=== PATIENT | female | born 1940 | race Caucasian/White ===

== ENCOUNTER 2020-04-20 04:28 | Day surgery (SDC) | payer OTHER ==
[2020-04-19 15:35] VITALS: BMI 26.2
--- NOTE | 2020-04-20 06:51 | HP ---
History & Physical Update - History History: No Change - Physical Physical: No Change - Assessment Assessment: No Change - Plan Plan: No Change (Consent signed and witnessed, all questions answered)
[2020-04-20] MEDS ORDERED: MIDAZOLAM HCL 2 MG/2 ML SINGLE DOSE VIAL ONE (09:37)
--- NOTE | 2020-04-20 10:36 | OP ---
Operative Note - Note: Operative Date: 04/20/20 Pre-Operative Diagnosis: 80yo with Postmenopausal bleed, thick endometrium Operation: Hysteroscopy, D&C Findings: Thickened Endometrium Post-Operative Diagnosis: Same as Pre-op Surgeon: Pinky De Guzman Anesthesiologist/AGRICULTURE ENGINEER: Jamar Hebert Anesthesia: MAC Specimens Removed: Endometrial curettings Estimated Blood Loss (mls): 5 Instrument used (Debridements only): Symphion Drains & Tubes with Location: Fluid Deficit 1000cc Drains, Volume Out (mls): 100 Fluid Volume Replaced (mls): 500 Operative Report Dictated: Yes
[2020-04-20] MEDS ORDERED: oxyCODONE HCL 5 MG TABLET PO PRN (10:41)
[2020-04-20] MEDS ORDERED: ONDANSETRON 4 MG/2 ML VIAL IVPUSH PRN (10:41)
[2020-04-20] MEDS ORDERED: IBUPROFEN 800 MG/8 ML IJ IVPB PRN (10:41)
[2020-04-20] MEDS ORDERED: IBUPROFEN 600 MG TABLET (FP) PO PRN (10:41)
[2020-04-20] MEDS ORDERED: ELECTROLYTE-148 SOLN 1,000 ML IV SCH (10:45)
[2020-04-20] MEDS ORDERED: LACTATED RINGERS SOLUTION 1,000 ML IV SCH (11:30)
[2020-04-20 12:07] VITALS: TEMP 97.1
[2020-04-20 12:42] VITALS: BP 135/72; PULSE 66
--- NOTE | 2020-04-20 15:02 | OP ---
DATE OF OPERATION: 04/20/2020 PREOPERATIVE DIAGNOSIS: A 80-year-old with postmenopausal bleeding, thick endometrium. OPERATION: Hysteroscopy, dilation and curettage. FINDINGS: Thickened endometrium. POSTOPERATIVE DIAGNOSIS: A 80-year-old with postmenopausal bleeding, thick endometrium. SURGEON: Pinky De Guzman MD ANESTHESIOLOGIST: Jamar Hebert MD ANESTHESIA: MAC. SPECIMENS SENT: Endometrial curettings. DESCRIPTION OF OPERATIVE PROCEDURE: After assuring informed consent, patient was brought to the operating room where she was placed in dorsal lithotomy position. After administering general sedation, the perineum and vagina were prepped and draped in sterile fashion. After timeout the Wei retractor was placed into the anterior and posterior vaginal fornix. The anterior uterine lip was articulated with single-tooth tenaculum. Cervix was gradually dilated to accommodate 6.3-mm Symphion hysteroscope that was introduced without any difficulty or resistance. The uterine cavity was inspected and subsequently the resecting device was introduced and endometrial cavity was resected circumferentially. Excellent hemostasis was noted throughout the procedure. All instruments and sponges were removed from uterus, cervix and vagina. Instrument count and sponge count was correct x2. Estimated blood loss 5 mL. Symphion hysteroscope used during the procedure. Drained 100 mL of urine during the procedure. Patient received 500 mL of IV fluids and fluid deficit was estimated to be 1000 mL. Patient was brought to the recovery room in stable condition. Fabricio [id number]
--- NOTE | 2020-04-21 15:16 | PATH ---
Surgical Pathology Report Patient Name: DANA HILLS Med. Rec. #: [id number] /Age/Gender: 1940 (Age: 80) / F Account: [id number] Location: [facility] SURGICAL Taken: 04/20/2020 Received: 04/20/2020 Reported: 04/21/2020 Physicians: Pinky De Guzman M.D. Specimen(s) Received ENDOMETRIAL CURETTINGS Clinical History Postmenopausal bleeding Final Diagnosis ENDOMETRIAL CURETTINGS, DILATION AND CURETTAGE: FRAGMENTS OF ATROPHIC ENDOMETRIUM AND FIBROMUSCULAR TISSUE. Electronically Signed Sabrina Snowden M.D. Gross Description Received in formalin labeled "endometrial curettings," is a 3.0 x 2.0 x 0.3 cm aggregate of yee soft tissue fragments. The specimen is entirely submitted in 2 cassettes. DL/04/20/2020 saudi/04/20/2020
== END 2020-04-20 13:11 | disposition home or self-care (01) ==
LOC: JASU-SURG 04:28
PROVIDERS: ATTEND Obstetrics & Gynecology
PROC: 0UDB8ZZ Extraction of Endometrium, Via Natural or Artificial Opening Endoscopic (ICD-10-PCS; principal; 2020-04-20 09:00)
DX: N95.0 Postmenopausal bleeding (principal); R93.89 Abnormal findings on diagnostic imaging of other specified body structures; E11.9 Type 2 diabetes mellitus without complications; E78.00 Pure hypercholesterolemia, unspecified
CPT/HCPCS: 82962; 88305-TC; 94760

== ENCOUNTER 2023-03-26 10:05 | Emergency (ER) | payer OTHER ==
[2023-03-26 10:15] VITALS: BP 116/66; PULSE 85; RESP 18; TEMP 98.2; BMI 26.2
[2023-03-26] MEDS ORDERED: TETANUS AND DIPHTHERIA TOXOID 0.5 ML DISP.SYRIN IM ONE (10:42)
[2023-03-26] MEDS ORDERED: ACETAMINOPHEN 500 MG TABLET (FP) PO ONE (10:42)
[2023-03-26] MEDS ORDERED: ACETAMINOPHEN 325 MG TABLET (FP) ONE (10:58)
[2023-03-26] MEDS ORDERED: DIPHTH,PERTUSS(ACELL),TET 0.5 ML DISP.SYRIN IM ONE (10:58)
== END 2023-03-26 14:51 | disposition home or self-care (01) ==
LOC: JERFT 10:05
PROC: 3E0234Z Introduction of Serum, Toxoid and Vaccine into Muscle, Percutaneous Approach (ICD-10-PCS; principal; 2023-03-26)
DX: M25.511 Pain in right shoulder (principal); S22.41XA Multiple fractures of ribs, right side, initial encounter for closed fracture; R07.81 Pleurodynia; W01.0XXA Fall on same level from slipping, tripping and stumbling without subsequent striking against object, initial encounter
CPT/HCPCS: 70450-TC; 71250-TC; 72125-TC; 73030-TC-RT-FY; 73060-TC-RT-FY; 73070-TC-RT-FY; 99284-25